=== PATIENT | male | born 1950 | race Caucasian/White ===

== ENCOUNTER 2024-04-04 20:08 | Emergency (ER) | payer MEDICAID, MEDICARE ==
[~2024-04-04] VITALS: Ht 172.7 cm; Wt 68.0 kg
[2024-04-04 20:20] VITALS: O2SAT 100
[2024-04-04 22:45] LABS: CLARITY URINE CLEAR (CLEAR); COLOR URINE YELLOW (YELLOW); GLUCOSE URINE 3+ (NEGATIVE); KETONES URINE NEGATIVE (NEGATIVE); LEUKOCYTE ESTERASE URINE NEGATIVE (NEGATIVE); NITRITE URINE NEGATIVE (NEGATIVE); OCCULT BLOOD URINE TRACE (NEGATIVE); PROTEIN URINE TRACE (NEGATIVE); SPECIFIC GRAVITY URINE 1.016 (1.005-1.030); UROBILINOGEN URINE 0.2 E.U./dL (0.2-1.0)
[2024-04-04 23:00] VITALS: BP 151/86; PULSE 74; RESP 16; TEMP 36.72516; O2SAT 100
[2024-04-04] MEDS: NA PHOS,M-B/NA PHOS,DI-BA ENEMA 118ML PR ONE (23:00)
[2024-04-04 23:06] LABS: BACTERIA URINE NONE SEEN; RBC URINE 0-2 /hpf (0-2); SQUAMOUS EPITHELIAL CELL URINE NONE SEEN /lpf (RARE/1+); WBC URINE NONE SEEN /hpf (0-2)
[2024-04-04] MEDS ORDERED: POLY119P2 MT (23:20)
== END 2024-04-04 23:50 | disposition home or self-care (01) ==
LOC: ER 20:08
DX: K59.00 Constipation, unspecified (principal); E11.9 Type 2 diabetes mellitus without complications
CPT/HCPCS: 81003; 99283

== ENCOUNTER 2024-08-11 14:00 | Emergency (ER) | payer SELFPAY ==
[~2024-08-11] VITALS: Ht 175.3 cm; Wt 77.0 kg
[~2024-08-11 14:00] MED LIST: POLY119P2 MT
[2024-08-11 14:21] VITALS: BP 135/59; PULSE 102; RESP 16; TEMP 38.8; O2SAT 98
[2024-08-11 15:38] LABS: CLARITY URINE CLEAR (CLEAR); COLOR URINE YELLOW (YELLOW); GLUCOSE URINE 2+ (NEGATIVE); KETONES URINE NEGATIVE (NEGATIVE); LEUKOCYTE ESTERASE URINE NEGATIVE (NEGATIVE); NITRITE URINE NEGATIVE (NEGATIVE); OCCULT BLOOD URINE 2+ (NEGATIVE); PROTEIN URINE 2+ (NEGATIVE); SPECIFIC GRAVITY URINE 1.019 (1.005-1.030)
[2024-08-11 15:53] LABS: BACTERIA URINE TRACE; SQUAMOUS EPITHELIAL CELL URINE FEW /lpf (RARE/1+); WBC URINE NONE SEEN /hpf (0-2)
[2024-08-11 16:32] LABS: HEMATOCRIT. 31.6 % (42.0-52.0); HEMOGLOBIN. 10.7 g/dL (14.0-18.0); MEAN CORPUSCULAR HEMOGLOBIN 35.8 pg (28.0-32.0); MEAN CORPUSCULAR HGB CONC 33.9 g/dL (31.0-37.0); MEAN CORPUSCULAR VOLUME 105.7 fL (80.0-94.0); MEAN PLATELET VOLUME 8.8 fl (7.4-10.4); PLATELET 138 x1000/uL (130-400); RED BLOOD CELL COUNT 2.99 mill/uL (4.7-6.1); RED CELL DISTRIBUTION WIDTH 13.7 % (11.6-14.6)
[2024-08-11 16:44] LABS: DIFFERENTIAL COMMENT 1; WHITE BLOOD COUNT 1.7 x1000/uL (4.5-11.0)
[2024-08-11 16:59] LABS: CREATININE 1.5 mg/dL (0.6-1.3)
[2024-08-11 17:26] LABS: PLATELET ESTIMATE NORMAL
[2024-08-11] MEDS ORDERED: PIPERACILLIN/TAZO 3.375G/50ML 50 ML IV ONE (17:30)
[2024-08-11] MEDS ORDERED: VANCOMYCIN 1G PREMIX 200 ML IV ONE (17:30)
[2024-08-11] MEDS: SODIUM CHLORIDE 0.9% (SEPSIS BOLUS) IV ONE (18:03)
[2024-08-11 18:40] LABS: CARBON DIOXIDE 21 mEq/L (21-32); CHLORIDE 94 mEq/L (98-107); POTASSIUM 5.4 mEq/L (3.5-5.1); SODIUM 123 mEq/L (136-145)
[2024-08-11 18:41] LABS: CALCIUM 9.1 mg/dL (8.7-10.4)
[2024-08-11 18:42] LABS: PROTHROMBIN TIME 11.1 sec (9.6-11.0)
[2024-08-11 18:45] LABS: CREATININE 1.5 mg/dL (0.6-1.3); GLUCOSE 244 mg/dL (70-105)
[2024-08-11 18:46] LABS: UREA NITROGEN BLOOD 29 mg/dL (9-23)
[2024-08-11 18:47] LABS: ALANINE AMINOTRANSFERASE 45 IU/L (10-49); ALBUMIN 4.2 g/dL (3.2-4.8); ASPARTATE AMINOTRANSFERASE 49 IU/L (<34)
[2024-08-11 18:48] LABS: BILIRUBIN DIRECT 0.4 mg/dL (<=3.0); BILIRUBIN TOTAL 1.1 mg/dL (0.1-1.0)
[2024-08-11] MEDS ORDERED: VANCOMYCIN 1G PREMIX 200 ML IV NR (19:45)
[2024-08-11] MEDS: PIPERACILLIN/TAZO 3.375G/50ML 50 ML IV NR (20:00)
[2024-08-11 20:22] LABS: TROPONIN I HIGH SENSITIVITY 248 ng/L (3.0-53)
== END 2024-08-11 20:26 | disposition left against medical advice (07) ==
LOC: ER 14:17
DX: A41.9 Sepsis, unspecified organism (principal); I21.4 Non-ST elevation (NSTEMI) myocardial infarction; R50.9 Fever, unspecified; E11.9 Type 2 diabetes mellitus without complications; Z79.899 Other long term (current) drug therapy
CPT/HCPCS: 80076; 80048; 81003; 83605; 83690; 85025; 85610; 87040; 84484; 36415; 84145; 71045; 96361; 96365; 99291; J2543; J7030; Z7610 ×2

== ENCOUNTER 2024-08-12 11:22 | Inpatient (IN) | payer SELFPAY ==
[~2024-08-12] VITALS: Ht 175.3 cm; Wt 72.6 kg
[2024-08-12 12:31] LABS: HEMATOCRIT. 31.3 % (42.0-52.0); HEMOGLOBIN. 10.6 g/dL (14.0-18.0); MEAN CORPUSCULAR HEMOGLOBIN 35.8 pg (28.0-32.0); MEAN CORPUSCULAR HGB CONC 33.8 g/dL (31.0-37.0); MEAN CORPUSCULAR VOLUME 105.8 fL (80.0-94.0); MEAN PLATELET VOLUME 9.4 fl (7.4-10.4); PLATELET 132 x1000/uL (130-400); RED BLOOD CELL COUNT 2.95 mill/uL (4.7-6.1); RED CELL DISTRIBUTION WIDTH 13.5 % (11.6-14.6)
[2024-08-12 12:33] LABS: POTASSIUM 4.6 mEq/L (3.5-5.1)
[2024-08-12 12:34] LABS: CALCIUM 8.8 mg/dL (8.7-10.4)
[2024-08-12 12:38] LABS: DIFFERENTIAL COMMENT 1
[2024-08-12 12:39] LABS: CREATININE 1.3 mg/dL (0.6-1.3)
[2024-08-12 12:47] LABS: WHITE BLOOD COUNT 1.9 x1000/uL (4.5-11.0)
[2024-08-12] MEDS ORDERED: LISINOPRIL 40MG TABLET PO ONE (15:00)
[2024-08-12 16:38] LABS: GIANT PLATELETS FEW; PLATELET ESTIMATE SLIGHTLY DECREASED
[2024-08-12] MEDS: LISINOPRIL 10MG TABLET PO NR (21:50)
[2024-08-12 22:50] VITALS: BP 149/76; PULSE 88; RESP 19; TEMP 36.5
[2024-08-13] VITALS: BP 133/69; PULSE 89; RESP 20; TEMP 36.6; O2SAT 96
[2024-08-13] MEDS ORDERED: OMEG1CAP66 MT (02:08)
[2024-08-13] MEDS ORDERED: TURM500C6 PO (02:08)
[2024-08-13] MEDS ORDERED: HYDROCODONE/ACETAMINOPHEN 10/325MG TABLET PO PRN (02:15)
[2024-08-13] MEDS ORDERED: ONDANSETRON HCL 4MG/2ML INJ IV PRN (02:15)
[2024-08-13] MEDS ORDERED: DEXTROSE 50% WATER 50ML SYRINGE IV PRN (02:15)
[2024-08-13 04:00] VITALS: BP 148/73; PULSE 91; RESP 19; TEMP 36.7; O2SAT 97
[2024-08-13] MEDS: BLOOD SUGAR DIAGNOSTIC STRIP TEST SCH (05:34)
[2024-08-13] MEDS: INSULIN LISPRO 100 UNITS/ML SUBCUT SCH (07:03)
[2024-08-13 08:00] VITALS: BP 124/58; PULSE 74; RESP 18; TEMP 36.7; O2SAT 98
[2024-08-13 08:47] LABS: CLARITY URINE CLEAR (CLEAR); COLOR URINE YELLOW (YELLOW); GLUCOSE URINE NEGATIVE (NEGATIVE); KETONES URINE NEGATIVE (NEGATIVE); LEUKOCYTE ESTERASE URINE NEGATIVE (NEGATIVE); NITRITE URINE NEGATIVE (NEGATIVE); OCCULT BLOOD URINE TRACE (NEGATIVE); PH URINE 5.5 (4.5-8.0); PROTEIN URINE 1+ (NEGATIVE); SPECIFIC GRAVITY URINE 1.013 (1.005-1.030); UROBILINOGEN URINE 0.2 E.U./dL (0.2-1.0)
[2024-08-13] MEDS: PANTOPRAZOLE SODIUM 40 MG/VIAL IV SCH (09:20)
[2024-08-13] MEDS: ENOXAPARIN 40MG/0.4ML SYR SUBCUT SCH (09:20)
[2024-08-13] MEDS: LOSARTAN 50 MG TABLET PO SCH (09:20)
[2024-08-13] MEDS: DOCUSATE SODIUM 250MG CAPSULE PO SCH (09:21)
[2024-08-13 09:32] LABS: SQUAMOUS EPITHELIAL CELL URINE RARE /lpf (RARE/1+)
[2024-08-13 09:33] LABS: BACTERIA URINE 1+
[2024-08-13 09:34] LABS: RBC URINE 0-2 /hpf (0-2)
[2024-08-13 09:35] LABS: WBC URINE 0-2 /hpf (0-2)
[2024-08-13 12:00] VITALS: BP 121/59; PULSE 73; RESP 18; TEMP 36.3; O2SAT 97
[2024-08-13] MEDS ORDERED: INSU100I28 SQ (14:29)
[2024-08-13] MEDS ORDERED: LOSA50TA41 MT (14:29)
[2024-08-13 16:00] VITALS: BP 126/60; PULSE 78; RESP 18; TEMP 36.7; O2SAT 98
[2024-08-13] MEDS: MAGNESIUM HYDROXIDE 400MG/5ML 30ML UDC PO NR (16:16)
[2024-08-13 19:50] LABS: CARBON DIOXIDE 23 mEq/L (21-32); CHLORIDE 96 mEq/L (98-107); POTASSIUM 3.8 mEq/L (3.5-5.1); SODIUM 124 mEq/L (136-145)
[2024-08-13 19:52] LABS: HEMATOCRIT. 28.2 % (42.0-52.0); HEMOGLOBIN. 9.8 g/dL (14.0-18.0); MEAN CORPUSCULAR HEMOGLOBIN 36.2 pg (28.0-32.0); MEAN CORPUSCULAR HGB CONC 34.9 g/dL (31.0-37.0); MEAN CORPUSCULAR VOLUME 103.7 fL (80.0-94.0); MEAN PLATELET VOLUME 9.6 fl (7.4-10.4); PLATELET 130 x1000/uL (130-400); RED BLOOD CELL COUNT 2.72 mill/uL (4.7-6.1); RED CELL DISTRIBUTION WIDTH 13.2 % (11.6-14.6)
[2024-08-13 19:56] LABS: GLUCOSE 135 mg/dL (70-105); UREA NITROGEN BLOOD 26 mg/dL (9-23)
[2024-08-13 20:00] VITALS: BP 127/67; PULSE 84; RESP 20; TEMP 36.2; O2SAT 97
[2024-08-13 20:10] LABS: DIFFERENTIAL COMMENT 1; WHITE BLOOD COUNT 1.7 x1000/uL (4.5-11.0)
[2024-08-13] MEDS ORDERED: ZOLPIDEM TARTRATE 5MG TABLET PO PRN (21:00)
[2024-08-13 21:25] LABS: PLATELET ESTIMATE NORMAL
[2024-08-13] MEDS: INSULIN GLARGINE 100 UNITS/ML SUBCUT SCH (22:20)
[2024-08-14] VITALS: BP 158/59; PULSE 86; RESP 20; TEMP 36.5; O2SAT 96
[2024-08-14 04:00] VITALS: BP 146/82; PULSE 95; RESP 20; TEMP 36.1; O2SAT 97
[2024-08-14 08:00] VITALS: BP 143/65; PULSE 85; RESP 18; TEMP 36.5; O2SAT 97
[2024-08-14] MEDS: SODIUM CHLORIDE 0.9% 1,000 ML IV SCH (10:30)
[2024-08-14 12:00] VITALS: BP 144/60; PULSE 83; RESP 18; TEMP 28.3; O2SAT 97
[2024-08-14 20:00] VITALS: BP 157/86; PULSE 78; RESP 21; TEMP 36.3; O2SAT 98
[2024-08-15] VITALS: BP 150/70; PULSE 89; RESP 20; TEMP 36.8; O2SAT 97
[2024-08-15 08:00] VITALS: BP 160/72; PULSE 89; RESP 18; TEMP 36.7; O2SAT 97
[2024-08-15 12:00] VITALS: BP 164/84; PULSE 87; RESP 18; TEMP 36.4; O2SAT 100
[2024-08-15 12:17] LABS: CHLORIDE 96 mEq/L (98-107); POTASSIUM 4.7 mEq/L (3.5-5.1); SODIUM 125 mEq/L (136-145)
[2024-08-15 12:18] LABS: CARBON DIOXIDE 23 mEq/L (21-32)
[2024-08-15 12:19] LABS: CALCIUM 8.5 mg/dL (8.7-10.4)
[2024-08-15 12:23] LABS: CREATININE 1.1 mg/dL (0.6-1.3); GLUCOSE 238 mg/dL (70-105); UREA NITROGEN BLOOD 21 mg/dL (9-23)
[2024-08-15] MEDS: AMLODIPINE 10MG TABLET PO SCH (12:46)
[2024-08-15 15:36] VITALS: BP 150/71; PULSE 88; TEMP 98.2; O2SAT 98
== END 2024-08-15 16:45 | disposition home health service (06) | DRG 199 ==
LOC: ER 11:26 → 7EST 14:54
PROVIDERS: ADMIT Internal Medicine; ATTEND Internal Medicine
DX: I16.0 Hypertensive urgency (principal); K74.60 Unspecified cirrhosis of liver; D64.9 Anemia, unspecified; D72.819 Decreased white blood cell count, unspecified; K59.00 Constipation, unspecified; E11.9 Type 2 diabetes mellitus without complications; I10 Essential (primary) hypertension
CPT/HCPCS: 36415; 76700; 80048; 81003; 82962; 83036; 85025; 99285; A4606; J1650; J1815; J2470; J7030

== ENCOUNTER 2024-08-19 00:05 | Emergency (ER) | payer SELFPAY ==
[~2024-08-19] VITALS: Ht 175.3 cm; Wt 77.1 kg
[~2024-08-19 00:05] MED LIST changes: +INSU100I28 SQ; +LOSA50TA41 MT; +OMEG1CAP66 MT; +TURM500C6 PO
[2024-08-19 00:07] VITALS: BP 188/104; PULSE 102; RESP 16; TEMP 36.7; O2SAT 98
[2024-08-19 00:59] LABS: BASOPHILS % 0.2 % (0.0-2.0); DIFFERENTIAL COMMENT 0; EOSINOPHILS % 1.2 % (0.0-5.0); HEMATOCRIT. 27.1 % (42.0-52.0); HEMOGLOBIN. 9.6 g/dL (14.0-18.0); LYMPHOCYTES % 31.5 % (20.0-50.0); MEAN CORPUSCULAR HEMOGLOBIN 36.3 pg (28.0-32.0); MEAN CORPUSCULAR HGB CONC 35.3 g/dL (31.0-37.0); MEAN CORPUSCULAR VOLUME 102.9 fL (80.0-94.0); MEAN PLATELET VOLUME 8.7 fl (7.4-10.4); MONOCYTES % 0.8 % (2.0-8.0); NEUTROPHILS % 66.3 % (40.0-76.0); PLATELET 194 x1000/uL (130-400); RED BLOOD CELL COUNT 2.63 mill/uL (4.7-6.1); WHITE BLOOD COUNT 2.7 x1000/uL (4.5-11.0)
[2024-08-19 01:13] LABS: CHLORIDE 90 mEq/L (98-107); POTASSIUM 4.7 mEq/L (3.5-5.1)
[2024-08-19 01:14] LABS: CALCIUM 8.6 mg/dL (8.7-10.4); CARBON DIOXIDE 25 mEq/L (21-32)
[2024-08-19 01:19] LABS: GLUCOSE 185 mg/dL (70-105); UREA NITROGEN BLOOD 16 mg/dL (9-23)
[2024-08-19 01:20] LABS: TROPONIN I HIGH SENSITIVITY 49 ng/L (3.0-53)
[2024-08-19 01:28] LABS: SODIUM 120 mEq/L (136-145)
[2024-08-19] MEDS ORDERED: AZITHROMYCIN 500 MG TABLET PO STA (01:54)
[2024-08-19] MEDS ORDERED: CEFTRIAXONE 1GM/50ML 50 ML IV ONE (02:00)
== END 2024-08-19 02:54 | disposition left against medical advice (07) ==
LOC: ER 00:05
DX: E87.1 Hypo-osmolality and hyponatremia (principal); R53.1 Weakness; E11.9 Type 2 diabetes mellitus without complications; Z79.4 Long term (current) use of insulin; Z79.899 Other long term (current) drug therapy; Z95.5 Presence of coronary angioplasty implant and graft; Z98.890 Other specified postprocedural states
CPT/HCPCS: 36415; 71045; 80048; 84484; 85025; 99284

== ENCOUNTER 2024-08-20 03:27 | Inpatient (IN) | payer SELFPAY ==
[~2024-08-20] VITALS: Ht 175.3 cm; Wt 73.6 kg
[2024-08-20] MEDS: AZITHROMYCIN 500MG/250ML 250 ML IV ONE (03:45)
[2024-08-20 04:11] LABS: BASOPHILS % 0.1 % (0.0-2.0); DIFFERENTIAL COMMENT 0; EOSINOPHILS % 0.3 % (0.0-5.0); LYMPHOCYTES % 28.4 % (20.0-50.0); MEAN CORPUSCULAR HEMOGLOBIN 36.5 pg (28.0-32.0); MEAN CORPUSCULAR VOLUME 101.4 fL (80.0-94.0); MEAN PLATELET VOLUME 8.1 fl (7.4-10.4); MONOCYTES % 1.1 % (2.0-8.0); NEUTROPHILS % 70.1 % (40.0-76.0); PLATELET 211 x1000/uL (130-400); RED BLOOD CELL COUNT 1.84 mill/uL (4.7-6.1); RED CELL DISTRIBUTION WIDTH 13.1 % (11.6-14.6); WHITE BLOOD COUNT 2.5 x1000/uL (4.5-11.0)
[2024-08-20 04:20] LABS: CHLORIDE 94 mEq/L (98-107); POTASSIUM 5.6 mEq/L (3.5-5.1); SODIUM 122 mEq/L (136-145)
[2024-08-20 04:21] LABS: CARBON DIOXIDE 24 mEq/L (21-32)
[2024-08-20] MEDS: CEFTRIAXONE 1GM/50ML 50 ML IV ONE (04:22)
[2024-08-20 04:26] LABS: CREATININE 1.1 mg/dL (0.6-1.3); GLUCOSE 217 mg/dL (70-105); UREA NITROGEN BLOOD 13 mg/dL (9-23)
[2024-08-20 04:28] LABS: TROPONIN I HIGH SENSITIVITY 40 ng/L (3.0-53)
[2024-08-20 04:35] LABS: HEMATOCRIT. 18.6 % (42.0-52.0); HEMOGLOBIN. 6.7 g/dL (14.0-18.0)
[2024-08-20] MEDS: OCTREOTIDE ACETATE 50 MCG/ML 1ML IV STA (04:36)
[2024-08-20] MEDS: PANTOPRAZOLE SODIUM 40 MG/VIAL IV STA (04:36)
[2024-08-20] MEDS ORDERED: ONDANSETRON HCL 4MG/2ML INJ IV PRN (04:45)
[2024-08-20] MEDS ORDERED: ACETAMINOPHEN 325MG TABLET PO PRN (04:45)
[2024-08-20] MEDS ORDERED: DEXTROSE 50% WATER 50ML SYRINGE IV PRN (04:45)
[2024-08-20] MEDS ORDERED: CLONIDINE 0.1MG TABLET PO PRN (04:45)
[2024-08-20] MEDS: SODIUM CHLORIDE 0.9% 1,000 ML IV SCH (04:45)
[2024-08-20] MEDS: SODIUM POLYSTYRENE SULFONATE 15 G/60 ML BOT PO NR (04:45)
[2024-08-20] MEDS ORDERED: MAGNESIUM/ALUMINUM HYDROXIDE/SIMETHICONE 30ML UDC PO PRN (04:45)
[2024-08-20] MEDS: AZITHROMYCIN 500MG/250ML 250 ML IV NR (05:40)
[2024-08-20 06:26] LABS: IRON 29 ug/dL (65-175)
[2024-08-20 06:27] LABS: LDL CHOLESTEROL 67 mg/dL (5-100); TRIGLYCERIDE 82 mg/dL (0-150)
[2024-08-20 06:28] LABS: CHOLESTEROL 104 mg/dL (<200); HDL CHOLESTEROL 21 mg/dL (>55); LACTATE DEHYDROGENASE 189 IU/L (120-246)
[2024-08-20 06:29] LABS: MEAN CORPUSCULAR HGB CONC 35.4 g/dL (31.0-37.0); MEAN CORPUSCULAR VOLUME 101.7 fL (80.0-94.0); PLATELET 210 x1000/uL (130-400); RED BLOOD CELL COUNT 1.81 mill/uL (4.7-6.1); TOTAL IRON BINDING CAPACITY 174 ug/dl (250-425); TROPONIN I HIGH SENSITIVITY 37 ng/L (3.0-53); WHITE BLOOD COUNT 2.6 x1000/uL (4.5-11.0)
[2024-08-20 06:33] LABS: VITAMIN B12 SERUM 1056 pg/mL (211-911)
[2024-08-20 06:34] LABS: THYROID STIMULATING HORMONE 0.82 uIU/mL (0.55-4.78)
[2024-08-20 06:39] LABS: HEMATOCRIT 18.4 % (42.0-52.0); HEMOGLOBIN 6.5 g/dL (14.0-18.0)
[2024-08-20] MEDS: PANTOPRAZOLE SODIUM 40 MG/VIAL IV SCH (09:00)
[2024-08-20] MEDS: BLOOD SUGAR DIAGNOSTIC STRIP TEST SCH (09:54)
[2024-08-20 10:10] LABS: CHLORIDE 93 mEq/L (98-107); POTASSIUM 5.6 mEq/L (3.5-5.1); SODIUM 121 mEq/L (136-145)
[2024-08-20 10:11] LABS: CALCIUM 7.9 mg/dL (8.7-10.4); CARBON DIOXIDE 24 mEq/L (21-32)
[2024-08-20 10:16] LABS: CREATININE 1.1 mg/dL (0.6-1.3); GLUCOSE 213 mg/dL (70-105); UREA NITROGEN BLOOD 13 mg/dL (9-23)
[2024-08-20 12:50] LABS: CLARITY URINE CLEAR (CLEAR); COLOR URINE YELLOW (YELLOW); GLUCOSE URINE TRACE (NEGATIVE); KETONES URINE NEGATIVE (NEGATIVE); LEUKOCYTE ESTERASE URINE NEGATIVE (NEGATIVE); NITRITE URINE NEGATIVE (NEGATIVE); OCCULT BLOOD URINE NEGATIVE (NEGATIVE); PH URINE 5.5 (4.5-8.0); PROTEIN URINE TRACE (NEGATIVE); SPECIFIC GRAVITY URINE 1.012 (1.005-1.030); UROBILINOGEN URINE 0.2 E.U./dL (0.2-1.0)
[2024-08-20 13:03] LABS: BACTERIA URINE NONE SEEN; RBC URINE 0-2 /hpf (0-2); SQUAMOUS EPITHELIAL CELL URINE NONE SEEN /lpf (RARE/1+); WBC URINE 0-2 /hpf (0-2); YEAST URINE NONE SEEN
[2024-08-20 13:06] LABS: *AMPHETAMINES SCREEN URINE NEGATIVE (NEGATIVE); *BARBITURATES SCREEN URINE NEGATIVE (NEGATIVE); *BENZODIAZEPINES SCREEN URINE NEGATIVE (NEGATIVE); *COCAINE SCREEN URINE NEGATIVE (NEGATIVE); METHADONE URINE SCREEN NEGATIVE (NEGATIVE)
[2024-08-20 13:07] LABS: CANNABINOID URINE SCREEN NEGATIVE (NEGATIVE); ECSTASY MDMA SCREEN URINE NEGATIVE (NEGATIVE); OPIATES URINE SCREEN NEGATIVE (NEGATIVE); PHENCYCLIDINE URINE SCREEN NEGATIVE (NEGATIVE)
[2024-08-20] MEDS ORDERED: ALBUTEROL (0.083%) 2.5MG/3ML NEB HHN NR (15:00)
[2024-08-20] MEDS: SODIUM POLYSTYRENE SULFONATE 15 G/60 ML BOT PO SCH (15:00)
[2024-08-20] MEDS ORDERED: NON FORMULARY MED XX SCH (16:00)
[2024-08-20] MEDS: GUAIFENESIN 600MG ER TABLET PO SCH (17:23)
[2024-08-20] MEDS: IRON SUCROSE COMPLEX 100 MG/5 ML ML IV SCH (17:23)
[2024-08-20 17:54] LABS: HEMATOCRIT 19.7 % (42.0-52.0)
[2024-08-20 17:56] LABS: HEMOGLOBIN 6.7 g/dL (14.0-18.0)
[2024-08-20 18:05] LABS: TROPONIN I HIGH SENSITIVITY 58 ng/L (3.0-53)
[2024-08-20 21:48] VITALS: BP 141/70; PULSE 87; RESP 21; TEMP 37
[2024-08-20 22:07] VITALS: BP 141/78; PULSE 78; RESP 22; TEMP 36.9; O2SAT 100
[2024-08-20] MEDS: IPRATROPIUM/ALBUTEROL 0.5-3(2.5)MG/3ML NEB HHN PRN (22:19)
[2024-08-20 22:24] VITALS: PULSE 95; RESP 20; O2SAT 98
[2024-08-20 23:59] LABS: BASOPHILS % 0.5 % (0.0-2.0); DIFFERENTIAL COMMENT 0; EOSINOPHILS % 0.4 % (0.0-5.0); LYMPHOCYTES % 34.4 % (20.0-50.0); MEAN CORPUSCULAR HEMOGLOBIN 35.5 pg (28.0-32.0); MEAN CORPUSCULAR HGB CONC 35.3 g/dL (31.0-37.0); MEAN CORPUSCULAR VOLUME 100.5 fL (80.0-94.0); MEAN PLATELET VOLUME 8.2 fl (7.4-10.4); MONOCYTES % 1.1 % (2.0-8.0); NEUTROPHILS % 63.6 % (40.0-76.0); PLATELET 227 x1000/uL (130-400); RED BLOOD CELL COUNT 1.81 mill/uL (4.7-6.1); RED CELL DISTRIBUTION WIDTH 14.1 % (11.6-14.6); WHITE BLOOD COUNT 2.5 x1000/uL (4.5-11.0)
[2024-08-21] VITALS (10 sets, daily range): BP systolic 120–142; BP diastolic 60–85; PULSE 84–98; RESP 12–20; TEMP 36.7–37.05852; O2SAT 97–100
[2024-08-21 00:12] LABS: HEMATOCRIT. 18.2 % (42.0-52.0); HEMOGLOBIN. 6.4 g/dL (14.0-18.0)
[2024-08-21 00:19] LABS: CHLORIDE 94 mEq/L (98-107); POTASSIUM 5.2 mEq/L (3.5-5.1); SODIUM 123 mEq/L (136-145)
[2024-08-21 00:20] LABS: CARBON DIOXIDE 25 mEq/L (21-32)
[2024-08-21] MEDS: INSULIN LISPRO 100 UNITS/ML SUBCUT SCH (00:22)
[2024-08-21 00:25] LABS: CREATININE 1.1 mg/dL (0.6-1.3); GLUCOSE 189 mg/dL (70-105); UREA NITROGEN BLOOD 14 mg/dL (9-23)
[2024-08-21 00:27] LABS: ALANINE AMINOTRANSFERASE 19 IU/L (10-49); ALBUMIN 2.9 g/dL (3.2-4.8); ASPARTATE AMINOTRANSFERASE 21 IU/L (<34); BILIRUBIN TOTAL 0.5 mg/dL (0.1-1.0)
[2024-08-21 01:04] LABS: PROTEIN TOTAL 5.5 g/dL (6.0-8.3)
[2024-08-21 02:53] LABS: HEMATOCRIT 18.2 % (42.0-52.0)
[2024-08-21 02:59] LABS: HEMOGLOBIN 6.4 g/dL (14.0-18.0)
[2024-08-21] MEDS ORDERED: AZITHROMYCIN 500 MG in DEXT 5% WATER 250 ML IV SCH (07:00)
[2024-08-21] MEDS ORDERED: CEFTRIAXONE 1GM/50ML 50 ML IV SCH (07:00)
[2024-08-21] MEDS ORDERED: SODIUM POLYSTYRENE SULFONATE 15 G/60 ML BOT PO ONE (07:15)
[2024-08-21] MEDS ORDERED: SODIUM BICARBONATE 8.4% 50MEQ/50ML SYR IV NR (07:15)
[2024-08-21] MEDS ORDERED: INSULIN REGULAR (HUMULIN R) 1000UNITS/10ML VIAL IV NR (07:15)
[2024-08-21] MEDS ORDERED: CALCIUM CHLORIDE 1GM/10ML SYR IV NR (07:15)
[2024-08-21] MEDS ORDERED: ALBUTEROL (0.083%) 2.5MG/3ML NEB HHN NR (07:15)
[2024-08-21] MEDS ORDERED: DEXTROSE 50% WATER 50ML SYRINGE IV NR (07:15)
[2024-08-21] MEDS ORDERED: SODIUM ZIRCONIUM CYCLOSILICATE 10GM/PACKET PO NR (07:30)
[2024-08-21 07:37] LABS: BASOPHILS % 0.6 % (0.0-2.0); DIFFERENTIAL COMMENT 0; EOSINOPHILS % 0.8 % (0.0-5.0); LYMPHOCYTES % 35.2 % (20.0-50.0); MEAN CORPUSCULAR HEMOGLOBIN 34.4 pg (28.0-32.0); MEAN CORPUSCULAR HGB CONC 33.9 g/dL (31.0-37.0); MEAN CORPUSCULAR VOLUME 101.6 fL (80.0-94.0); MEAN PLATELET VOLUME 8.2 fl (7.4-10.4); MONOCYTES % 1.3 % (2.0-8.0); NEUTROPHILS % 62.1 % (40.0-76.0); PLATELET 235 x1000/uL (130-400); RED BLOOD CELL COUNT 2.03 mill/uL (4.7-6.1); RED CELL DISTRIBUTION WIDTH 14.8 % (11.6-14.6); WHITE BLOOD COUNT 2.5 x1000/uL (4.5-11.0)
[2024-08-21 07:48] LABS: CHLORIDE 98 mEq/L (98-107); POTASSIUM 4.7 mEq/L (3.5-5.1); SODIUM 127 mEq/L (136-145)
[2024-08-21 07:49] LABS: CALCIUM 8.3 mg/dL (8.7-10.4); CARBON DIOXIDE 25 mEq/L (21-32)
[2024-08-21 07:54] LABS: GLUCOSE 110 mg/dL (70-105); UREA NITROGEN BLOOD 12 mg/dL (9-23)
[2024-08-21] MEDS: SODIUM CHLORIDE 0.9% 1,000 ML IV SCH (08:00)
[2024-08-21 08:05] LABS: HEMATOCRIT. 20.6 % (42.0-52.0)
[2024-08-21] MEDS: AZITHROMYCIN 500MG/250ML 250 ML IV SCH (11:15)
[2024-08-21] MEDS: CEFTRIAXONE 1GM/50ML 50 ML IV SCH (15:46)
[2024-08-21 17:11] LABS: HEMATOCRIT 26.1 % (42.0-52.0); HEMOGLOBIN 8.7 g/dL (14.0-18.0); MEAN CORPUSCULAR HEMOGLOBIN 34.1 pg (28.0-32.0); MEAN CORPUSCULAR HGB CONC 33.4 g/dL (31.0-37.0); MEAN CORPUSCULAR VOLUME 101.9 fL (80.0-94.0); PLATELET 281 x1000/uL (130-400); RED BLOOD CELL COUNT 2.56 mill/uL (4.7-6.1); RED CELL DISTRIBUTION WIDTH 16.5 % (11.6-14.6); WHITE BLOOD COUNT 4.1 x1000/uL (4.5-11.0)
[2024-08-21] MEDS: BENZONATATE 100MG CAPSULE PO NR (17:28)
[2024-08-21 20:56] LABS: HEMATOCRIT 22.1 % (42.0-52.0); HEMOGLOBIN 7.7 g/dL (14.0-18.0)
[2024-08-21] MEDS ORDERED: IOHEXOL-300 100 ML BOTTLE ONE (23:51)
[2024-08-22] VITALS (7 sets, daily range): BP systolic 111–129; BP diastolic 58–74; PULSE 80–93; RESP 14–22; TEMP 36.6–37.1; O2SAT 98–100
[2024-08-22 07:38] LABS: PROTHROMBIN TIME 11.2 sec (9.6-11.0)
[2024-08-22 07:42] LABS: CHLORIDE 98 mEq/L (98-107); POTASSIUM 4.4 mEq/L (3.5-5.1); SODIUM 129 mEq/L (136-145)
[2024-08-22 07:43] LABS: BASOPHILS % 0.5 % (0.0-2.0); CALCIUM 8.4 mg/dL (8.7-10.4); CARBON DIOXIDE 23 mEq/L (21-32); DIFFERENTIAL COMMENT 0; HEMATOCRIT. 22.1 % (42.0-52.0); HEMOGLOBIN. 7.4 g/dL (14.0-18.0); LYMPHOCYTES % 45.3 % (20.0-50.0); MEAN CORPUSCULAR HEMOGLOBIN 33.9 pg (28.0-32.0); MEAN CORPUSCULAR HGB CONC 33.7 g/dL (31.0-37.0); MEAN CORPUSCULAR VOLUME 100.6 fL (80.0-94.0); MEAN PLATELET VOLUME 7.9 fl (7.4-10.4); NEUTROPHILS % 52.2 % (40.0-76.0); PLATELET 251 x1000/uL (130-400); RED BLOOD CELL COUNT 2.19 mill/uL (4.7-6.1); RED CELL DISTRIBUTION WIDTH 16.3 % (11.6-14.6); WHITE BLOOD COUNT 2.4 x1000/uL (4.5-11.0)
[2024-08-22 07:46] LABS: UREA NITROGEN BLOOD 11 mg/dL (9-23)
[2024-08-22 07:48] LABS: CREATININE 1.1 mg/dL (0.6-1.3); GLUCOSE 109 mg/dL (70-105)
[2024-08-22 07:50] LABS: ALANINE AMINOTRANSFERASE 18 IU/L (10-49); ASPARTATE AMINOTRANSFERASE 28 IU/L (<34); BILIRUBIN DIRECT 0.2 mg/dL (<=3.0); BILIRUBIN TOTAL 0.5 mg/dL (0.1-1.0); GAMMA GLUTAMYL TRANSPEPTIDASE 19 IU/L (<73); PROTEIN TOTAL 5.8 g/dL (6.0-8.3)
[2024-08-22 08:03] LABS: HEPATITIS B SURFACE ANTIGEN NEGATIVE (Negative)
[2024-08-22 08:23] LABS: HEPATITIS A AB IGM NEGATIVE (Negative)
[2024-08-22 08:24] LABS: HEPATITIS B CORE AB IGM NEGATIVE (Negative); HEPATITIS C AB NON REACTIVE (Neg) (Negative)
[2024-08-22] MEDS: POLYETHYLENE GLYCOL 3350 (17GM) 1 DOSE PACK PO SCH (12:58)
[2024-08-22] MEDS: CARVEDILOL 3.125 MG TABLET PO SCH (12:59)
[2024-08-22] MEDS: BENZONATATE 100MG CAPSULE PO PRN (12:59)
[2024-08-22] MEDS: SPIRONOLACTONE 12.5MG TABLET PO SCH (16:10)
[2024-08-22] MEDS: TAMSULOSIN HCL 0.4MG SR CAPSULE PO SCH (16:10)
[2024-08-23] VITALS (10 sets, daily range): BP systolic 105–130; BP diastolic 60–70; PULSE 71–82; RESP 14–22; TEMP 36.6–36.8; O2SAT 97–100
[2024-08-23] MEDS: MELATONIN 3MG TABLET PO NR (01:40)
[2024-08-23 11:50] LABS: BASOPHILS % 0.5 % (0.0-2.0); EOSINOPHILS % 1.2 % (0.0-5.0); LYMPHOCYTES % 40.7 % (20.0-50.0); MEAN CORPUSCULAR HEMOGLOBIN 33.9 pg (28.0-32.0); MEAN CORPUSCULAR HGB CONC 33.9 g/dL (31.0-37.0); MEAN PLATELET VOLUME 7.9 fl (7.4-10.4); MONOCYTES % 0.8 % (2.0-8.0); NEUTROPHILS % 56.8 % (40.0-76.0); PLATELET 260 x1000/uL (130-400); RED BLOOD CELL COUNT 2.07 mill/uL (4.7-6.1); RED CELL DISTRIBUTION WIDTH 15.7 % (11.6-14.6); WHITE BLOOD COUNT 2.1 x1000/uL (4.5-11.0)
[2024-08-23 12:00] LABS: HEMATOCRIT. 20.7 % (42.0-52.0)
[2024-08-23 12:06] LABS: CHLORIDE 91 mEq/L (98-107); POTASSIUM 4.6 mEq/L (3.5-5.1)
[2024-08-23 12:08] LABS: CALCIUM 7.7 mg/dL (8.7-10.4); CARBON DIOXIDE 21 mEq/L (21-32)
[2024-08-23 12:13] LABS: GLUCOSE 174 mg/dL (70-105); UREA NITROGEN BLOOD 13 mg/dL (9-23)
[2024-08-23 12:14] LABS: ALANINE AMINOTRANSFERASE 18 IU/L (10-49); AMMONIA 32 uMol/L (<32); ASPARTATE AMINOTRANSFERASE 29 IU/L (<34)
[2024-08-23 12:15] LABS: ALBUMIN 2.8 g/dL (3.2-4.8); BILIRUBIN DIRECT 0.2 mg/dL (<=3.0); BILIRUBIN TOTAL 0.5 mg/dL (0.1-1.0); PROTEIN TOTAL 5.9 g/dL (6.0-8.3)
[2024-08-23] MEDS: EMPAGLIFLOZIN 10MG TABLET PO SCH (12:15)
[2024-08-23 12:29] LABS: SODIUM 118 mEq/L (136-145)
[2024-08-23] MEDS: FERROUS SULFATE 325MG TABLET PO SCH (13:00)
[2024-08-23] MEDS: IPRATROPIUM/ALBUTEROL 0.5-3(2.5)MG/3ML NEB HHN SCH (13:37)
[2024-08-23] MEDS ORDERED: SODIUM CHLORIDE 0.9% 1,000 ML IV SCH (19:45)
[2024-08-23] MEDS: SODIUM CHLORIDE 0.9% 1,000 ML IV SCH (20:00)
[2024-08-23 20:34] LABS: HEMOGLOBIN 7.6 g/dL (14.0-18.0)
[2024-08-23] MEDS: MAGNESIUM 2 G PREMIX 50 ML IV NR (21:00)
[2024-08-24] VITALS: BP 107/55; PULSE 86; RESP 18; TEMP 36.7; O2SAT 97
[2024-08-24] MEDS: MAGNESIUM 2 G PREMIX 50 ML IV NR (00:46)
[2024-08-24 03:26] VITALS: PULSE 75; RESP 20; O2SAT 98
[2024-08-24 04:00] VITALS: BP 124/66; PULSE 88; RESP 14; TEMP 36.8; O2SAT 96
[2024-08-24 07:14] LABS: CHLORIDE 97 mEq/L (98-107); POTASSIUM 4.8 mEq/L (3.5-5.1); SODIUM 127 mEq/L (136-145)
[2024-08-24 07:16] LABS: CARBON DIOXIDE 25 mEq/L (21-32)
[2024-08-24 07:17] LABS: CALCIUM 8.7 mg/dL (8.7-10.4)
[2024-08-24 07:21] LABS: CREATININE 1.2 mg/dL (0.6-1.3); GLUCOSE 119 mg/dL (70-105)
[2024-08-24 07:22] LABS: UREA NITROGEN BLOOD 15 mg/dL (9-23)
[2024-08-24 07:23] LABS: ALANINE AMINOTRANSFERASE 19 IU/L (10-49); ALBUMIN 3.1 g/dL (3.2-4.8); ASPARTATE AMINOTRANSFERASE 26 IU/L (<34)
[2024-08-24 07:24] LABS: BILIRUBIN DIRECT 0.2 mg/dL (<=3.0); BILIRUBIN TOTAL 0.4 mg/dL (0.1-1.0); PROTEIN TOTAL 6.1 g/dL (6.0-8.3)
[2024-08-24 07:52] LABS: HEMATOCRIT. 24.4 % (42.0-52.0); HEMOGLOBIN. 8.1 g/dL (14.0-18.0); MEAN CORPUSCULAR HEMOGLOBIN 33.2 pg (28.0-32.0); MEAN CORPUSCULAR HGB CONC 33.1 g/dL (31.0-37.0); MEAN CORPUSCULAR VOLUME 100.3 fL (80.0-94.0); PLATELET 314 x1000/uL (130-400); RED BLOOD CELL COUNT 2.43 mill/uL (4.7-6.1); RED CELL DISTRIBUTION WIDTH 15.4 % (11.6-14.6)
[2024-08-24 08:00] VITALS: BP 129/67; PULSE 99; RESP 14; TEMP 36.8; O2SAT 97
[2024-08-24] MEDS: AZITHROMYCIN 500 MG TABLET PO SCH (08:34)
[2024-08-24 08:35] LABS: DIFFERENTIAL COMMENT 1
[2024-08-24 08:53] VITALS: PULSE 95; RESP 16; O2SAT 94
[2024-08-24 17:17] LABS: PLATELET ESTIMATE NORMAL
== END 2024-08-24 10:30 | disposition left against medical advice (07) | DRG 133 ==
LOC: ER 03:27 → EDBEDREQTM 04:24 → EDBEDREQ 04:24 → EDBEDREQTM 04:45 → EDBEDREQSVC 04:45 → EDBEDREQ 04:50 → EDBEDREQSVC 15:54 → 3WST 19:41
PROVIDERS: ADMIT Hospitalist; ATTEND Hospitalist
PROC: 30233N1 Transfusion of Nonautologous Red Blood Cells into Peripheral Vein, Percutaneous Approach (ICD-10-PCS; principal; 2024-08-20)
DX: J96.00 Acute respiratory failure, unspecified whether with hypoxia or hypercapnia (principal); J18.9 Pneumonia, unspecified organism; I42.0 Dilated cardiomyopathy; K76.6 Portal hypertension; D73.5 Infarction of spleen; R18.8 Other ascites; E87.1 Hypo-osmolality and hyponatremia; K74.60 Unspecified cirrhosis of liver; E87.70 Fluid overload, unspecified; I11.0 Hypertensive heart disease with heart failure; Z20.822 Contact with and (suspected) exposure to COVID-19; I50.9 Heart failure, unspecified; D72.819 Decreased white blood cell count, unspecified; E87.5 Hyperkalemia; E61.1 Iron deficiency; D53.9 Nutritional anemia, unspecified; K92.2 Gastrointestinal hemorrhage, unspecified; I45.2 Bifascicular block; I25.10 Atherosclerotic heart disease of native coronary artery without angina pectoris; R16.1 Splenomegaly, not elsewhere classified; E11.9 Type 2 diabetes mellitus without complications; J98.11 Atelectasis; R33.9 Retention of urine, unspecified; Z53.29 Procedure and treatment not carried out because of patient's decision for other reasons; I34.0 Nonrheumatic mitral (valve) insufficiency; R59.0 Localized enlarged lymph nodes; Z59.00 Homelessness unspecified; Z87.891 Personal history of nicotine dependence; Z91.148 Patient's other noncompliance with medication regimen for other reason; Z95.5 Presence of coronary angioplasty implant and graft
CPT/HCPCS: 36415; 71045; 71260; 74177; 76604; 76705; 80048; 80053; 80061; 80076; 80305; 81003; 82105; 82140; 82270; 82378; 82607; 82746; 82962; 82977; 83036; 83540; 83550; 83615; 83735; 83880; 84145; 84443; 84484; 85014; 85018; 85025; 85027; 85044; 85651; 86705; 86709; 86850; 86900; 86920; 87340; 87426; 87804; 93005; 93306; 94070; 94640; 94664; 94760; 99291; A4606; J0456; J0696; J1815; J2354; J2470; J3475; J7030; P9016; Q9967

== ENCOUNTER 2024-08-25 00:34 | Emergency (ER) | payer SELFPAY ==
[~2024-08-25] VITALS: Ht 182.9 cm; Wt 86.0 kg
[2024-08-25 00:37] VITALS: BP 128/67; PULSE 80; RESP 18; TEMP 37.1; O2SAT 98
[2024-08-25 01:31] LABS: BASOPHILS % 0.5 % (0.0-2.0); DIFFERENTIAL COMMENT 0; EOSINOPHILS % 1.1 % (0.0-5.0); HEMATOCRIT. 21.9 % (42.0-52.0); HEMOGLOBIN. 7.7 g/dL (14.0-18.0); LYMPHOCYTES % 39.1 % (20.0-50.0); MEAN CORPUSCULAR HEMOGLOBIN 35.1 pg (28.0-32.0); MEAN CORPUSCULAR VOLUME 100.3 fL (80.0-94.0); MEAN PLATELET VOLUME 7.1 fl (7.4-10.4); MONOCYTES % 1.3 % (2.0-8.0); PLATELET 295 x1000/uL (130-400); RED BLOOD CELL COUNT 2.18 mill/uL (4.7-6.1); WHITE BLOOD COUNT 2.4 x1000/uL (4.5-11.0)
[2024-08-25 01:43] LABS: POTASSIUM 4.5 mEq/L (3.5-5.1)
[2024-08-25 01:45] LABS: CALCIUM 8.6 mg/dL (8.7-10.4)
[2024-08-25 01:49] LABS: CREATININE 1.3 mg/dL (0.6-1.3)
== END 2024-08-25 08:10 | disposition left against medical advice (07) ==
LOC: ER 00:41 → CANBEDREQ 08:11
DX: R06.02 Shortness of breath (principal); D64.9 Anemia, unspecified; E11.9 Type 2 diabetes mellitus without complications; Z79.899 Other long term (current) drug therapy
CPT/HCPCS: 36415; 71045; 80048; 85025; 99284